=== PATIENT | female | born 1945 | race Native Hawaiian/Other Pacific Islander ===

== ENCOUNTER 2018-11-22 12:22 | Outpatient (CLI) | payer OTHER ==
[~2018-11-22 12:22] MED LIST: ASPIRIN81 M2 OR; DULO30CA OR; FLONASE AL50 MCG/ACT; FLUTMIS6 INH; GABA400C2 PO; HYDR25TA60 PO; MONT10TA PO; PANTPAK PO; TRAZ100T OR
== END 2018-11-22 12:25 | disposition short-term general hospital (02) ==
LOC: AMB 12:22
DX: M54.9 Dorsalgia, unspecified (principal); M54.2 Cervicalgia; R07.9 Chest pain, unspecified; V89.2XXA Person injured in unspecified motor-vehicle accident, traffic, initial encounter; Y92.413 State road as the place of occurrence of the external cause
CPT/HCPCS: A0425; A0427

== ENCOUNTER 2018-11-22 12:30 | Emergency (ER) | payer OTHER ==
[~2018-11-22] VITALS: Ht 162.6 cm; Wt 73.9 kg
[2018-11-22 12:50] VITALS: TEMP 97.7
[2018-11-22 15:18] VITALS: BP 124/82
== END 2018-11-22 15:17 | disposition home or self-care (01) ==
LOC: ED 12:30
DX: S09.8XXA Other specified injuries of head, initial encounter (principal); S16.1XXA Strain of muscle, fascia and tendon at neck level, initial encounter; S20.212A Contusion of left front wall of thorax, initial encounter; S20.211A Contusion of right front wall of thorax, initial encounter; S30.1XXA Contusion of abdominal wall, initial encounter; I73.9 Peripheral vascular disease, unspecified; V89.2XXA Person injured in unspecified motor-vehicle accident, traffic, initial encounter; Y92.89 Other specified places as the place of occurrence of the external cause
CPT/HCPCS: 93005; 99283; Q9963

== ENCOUNTER 2020-07-31 13:01 | Outpatient (CLI) | payer OTHER | END 2020-07-31 20:36 | disposition home or self-care (01) | LOC: LAB 13:01 | PROVIDERS: ATTEND Nurse Practitioner Family | DX: R61 Generalized hyperhidrosis (principal); R68.83 Chills (without fever); R19.7 Diarrhea, unspecified; R06.02 Shortness of breath; Z11.52 Encounter for screening for COVID-19 | CPT/HCPCS: 87635; G2023; U0003 ==

== ENCOUNTER 2020-12-01 20:45 | Emergency (ER) | payer OTHER ==
[~2020-12-01] VITALS: Ht 162.6 cm; Wt 80.3 kg
[2020-12-02 00:10] VITALS: BP 146/73; TEMP 96.3
== END 2020-12-02 00:25 | disposition home or self-care (01) ==
LOC: ED 20:45
PROC: 2W39X1Z Immobilization of Left Upper Extremity using Splint (ICD-10-PCS; principal; 2020-12-01)
DX: S42.215A Unspecified nondisplaced fracture of surgical neck of left humerus, initial encounter for closed fracture (principal); R42 Dizziness and giddiness; W10.8XXA Fall (on) (from) other stairs and steps, initial encounter; Y92.89 Other specified places as the place of occurrence of the external cause
CPT/HCPCS: 99283

== ENCOUNTER 2021-05-13 11:00 | Outpatient (CLI) | payer OTHER | END 2021-05-13 18:59 | disposition home or self-care (01) | LOC: LAB 11:00 | PROVIDERS: ATTEND Nurse Practitioner Family | DX: R19.7 Diarrhea, unspecified (principal); R10.84 Generalized abdominal pain | CPT/HCPCS: 82272; 83630; 87015; 87045; 87324; 87328; 87329; 87338; 87449; 87899 ==

== ENCOUNTER 2021-06-02 07:48 | Outpatient (CLI) | payer OTHER | END 2021-06-02 19:01 | disposition home or self-care (01) | LOC: CT 07:48 | PROVIDERS: ATTEND Nurse Practitioner Family | DX: K52.89 Other specified noninfective gastroenteritis and colitis (principal); R10.84 Generalized abdominal pain; R11.0 Nausea | CPT/HCPCS: 36415; 82565; 84520; Q9963 ==

== ENCOUNTER 2021-09-13 17:58 | Emergency (ER) | payer OTHER ==
[~2021-09-13] VITALS: Ht 162.6 cm; Wt 77.1 kg
[2021-09-13 19:30] LABS: PLATELET COUNT 291 K/uL (152-353)
[2021-09-13 19:44] LABS: POTASSIUM 3.5 mmol/L (3.6-5.2)
[2021-09-13] MEDS ORDERED: PRED20TA27 PO (20:53)
[2021-09-13] MEDS ORDERED: AZIT250T3 PO (20:53)
[2021-09-13 21:02] VITALS: BP 151/84; TEMP 98.9
== END 2021-09-13 21:02 | disposition home or self-care (01) ==
LOC: ED 17:58
PROVIDERS: Emergency Medicine
DX: J20.9 Acute bronchitis, unspecified (principal)
CPT/HCPCS: 36415; 80053; 84484; 85027; 87040; 87502; 99282

== ENCOUNTER 2021-11-17 19:21 | Emergency (ER) | payer OTHER ==
[~2021-11-17] VITALS: Ht 162.6 cm; Wt 77.1 kg
[~2021-11-17 19:21] MED LIST changes: +AZIT250T3 PO; +PRED20TA27 PO
[2021-11-17 19:28] VITALS: TEMP 98.8
[2021-11-17 20:05] LABS: PLATELET COUNT 323 K/uL (152-353)
[2021-11-17 20:11] LABS: POTASSIUM 3.6 mmol/L (3.6-5.2)
[2021-11-17 20:16] LABS: PARTIAL THROMBOPLASTIN TIME 27.8 SECONDS (24.5-33.6)
[2021-11-17 22:50] VITALS: BP 163/82
== END 2021-11-17 22:50 | disposition home or self-care (01) ==
LOC: ED 19:21
PROVIDERS: Emergency Medicine
DX: K21.9 Gastro-esophageal reflux disease without esophagitis (principal)
CPT/HCPCS: 36415; 80053; 83880; 84484; 85027; 85379; 85610; 85730; 93005; 99284; Q9963

== ENCOUNTER 2021-12-16 13:23 | Outpatient (CLI) | payer OTHER ==
[2021-12-16 14:06] LABS: PLATELET COUNT 322 K/uL (152-353)
[2021-12-16 14:33] LABS: POTASSIUM 4.2 mmol/L (3.6-5.2)
== END 2021-12-16 18:53 | disposition home or self-care (01) ==
LOC: LABW 13:23
PROVIDERS: ATTEND Internal Medicine
DX: K52.89 Other specified noninfective gastroenteritis and colitis (principal)
CPT/HCPCS: 36415; 80053; 82150; 83630; 83690; 84443; 85027; 87507

== ENCOUNTER 2022-06-07 14:59 | Outpatient (CLI) | payer OTHER | END 2022-06-07 20:55 | disposition home or self-care (01) | LOC: RAD 14:59 | PROVIDERS: ATTEND Registered Nurse | DX: J20.8 Acute bronchitis due to other specified organisms (principal) ==

== ENCOUNTER 2022-07-02 12:43 | Emergency (ER) | payer OTHER ==
[~2022-07-02] VITALS: Ht 162.6 cm; Wt 75.8 kg
[2022-07-02 12:43] VITALS: TEMP 98.7
[2022-07-02 13:01] LABS: PLATELET COUNT 301 K/uL (152-353)
[2022-07-02 13:15] LABS: POTASSIUM 3.6 mmol/L (3.6-5.2)
[2022-07-02 16:27] VITALS: BP 136/74
== END 2022-07-02 16:27 | disposition home or self-care (01) ==
LOC: ED 12:43
PROVIDERS: Internal Medicine
DX: K21.9 Gastro-esophageal reflux disease without esophagitis (principal)
CPT/HCPCS: 36415; 80053; 84484; 85027; 93005; 99284